=== PATIENT | female | born 1995 | race Caucasian/White ===

== ENCOUNTER 2022-12-06 07:07 | Inpatient (IN) ==
[2022-12-06 08:12] LABS: Hematocrit (blood only) 40.2 % (37.0-47.0); Hemoglobin 13.6 g/dl (12.0-16.0); Mean Corpuscular Hemoglobin 31.6 pg (25.0-34.0); Mean Corpuscular Hgb Conc 33.8 g/dL (32.0-36.0); Mean Corpuscular Volume 93.3 fL (80.0-100.0); Mean Platelet Volume 10.1 fL (9.4-12.4); Platelet Count 238 K/uL (130-400); RDW Standard Deviation 48.2 fL (36.4-46.3); Red Blood Count 4.31 M/uL (4.20-5.40); White Blood Count 9.82 K/ul (4.8-10.8)
[2022-12-06 08:42] LABS: Albumin Globulin Ratio 1.1 (0.9-2); Albumin Level 3.2 gm/dl (3.4-5.0); BUN Creatinine Ratio 31.6 (10-20); Bilirubin,Total 0.2 mg/dl (0.2-1.0); Calcium 9.1 mg/dl (8.6-10.3); Creatinine Clr Calc Pharmacy 159.4 ml/min; Est GFR (African American) 147.2 ml/min; Potassium 3.7 mmol/L (3.5-5.1); Total Protein 6.2 gm/dl (6.0-8.3)
[2022-12-06] MEDS ORDERED: LIDOCAINE 1% LOCAL 20 ML VIAL INFIL PRN (09:25)
[2022-12-06] MEDS ORDERED: OXYTOCIN 30 UNITS/500 ML BAG IV PRN (09:25)
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
[2022-12-06] MEDS ORDERED: DINOPROSTONE 10 MG INSERT PV ONE (09:59)
--- NOTE | 2022-12-06 10:49 | Labor Progress Brief Note ---
Date of Service December 06, 2022 Assessment & Plan Admission and Anticipated Discharge Date Admission Date: December 06, 2022 Physical Exam Genitourinary: Manual OB Exam: + cervical dilation fingertip, + cervical effacement 50% and + station high OB Exam Monitor Tracing: + external FHT monitor used, + external uterine monitor used, + category I and + normal FHT variability Cervidil 10 mg placed vaginally Results & Data Vital Signs (Past 12 Hours) Vital Signs Temp Pulse Resp BP 12/06/22 10:46 102 H 155/88 H 12/06/22 07:14 20 12/06/22 07:14 36.5 C 20 12/06/22 07:47 100 H 130/81 12/06/22 07:32 101 H 135/84 12/06/22 07:17 36.5 C 109 H 20 142/83 H
--- NOTE | 2022-12-06 22:35 | Labor Progress Brief Note ---
Date of Service December 06, 2022 Assessment & Plan Admission and Anticipated Discharge Date Admission Date: December 06, 2022 Physical Exam Genitourinary: Manual OB Exam: + cervical dilation fingertip, + cervical effacement 50% and + station high OB Exam Monitor Tracing: + external FHT monitor used, + external uterine monitor used and + category I Cervidil removed. Will start Cytotec 50 mcg PO every 4 hours. Results & Data Vital Signs (Past 12 Hours) Vital Signs Temp Pulse Resp BP 12/06/22 22:20 36.7 C 101 H 18 126/91 12/06/22 19:12 37.0 C 110 H 18 138/93 12/06/22 18:43 112 H 134/84 12/06/22 16:14 114 H 136/84 12/06/22 16:11 115 H 136/92 12/06/22 15:14 108 H 139/90 12/06/22 15:01 121 H 152/88 H 12/06/22 13:32 106 H 132/72 12/06/22 12:30 36.6 C 106 H 20 132/89 12/06/22 10:46 102 H 155/88 H
[2022-12-07] MEDS: miSOPROStoL 50 MCG TAB PO PRN ×2 (00:03→05:56)
[2022-12-07] MEDS ORDERED: BUTORPHANOL TARTRATE 1 MG/ML VIAL IV PRN (00:13)
[2022-12-07] MEDS: DOCUSATE SODIUM 100 MG CAP PO SCH ×3 (01:05→20:01)
[2022-12-07] MEDS ORDERED: ceFAZolin 2000MG 2,000 MG/15 ML SYR IV SCH (06:00)
[2022-12-07] MEDS ORDERED: OXYTOCIN 30 UNITS/500 ML BAG IV PRN (08:37)
--- NOTE | 2022-12-07 09:03 | Obstetrical Progress Note ---
Date of Service December 07, 2022 Assessment & Plan Admission and Anticipated Discharge Date Admission Date: December 06, 2022 Subjective Patient is seen and examined. She was admitted yesterday by Dr. Gavin for induction of labor at term due to gestational diabetes recently required insulin. Patient has not had time to start insulin since it was prescribed on December 05 and her induction date was moved to yesterday December 06. She has received intravaginal Cervidil yesterday morning and then continued with oral Cytotec overnight. She has been feeling contractions irregularly pain level is 5 out of 10. She denies leakage of fluid or vaginal bleeding. She reports good movements. Last ultrasound was done by [facility] 3 weeks ago and EFW was 6 pounds 14 ounces. I checked her cervix and it is now 3 cm dilated, 60% effaced, -2 with a tight bulging bag. heart rate category 1, Kep'El showing contractions every 4 to 6 minutes Plan to start oxytocin per protocol and AROM when able. All questions were answered. Results & Data Vital Signs (Past 12 Hours) Vital Signs Temp Pulse Resp BP 12/07/22 07:09 36.8 C 100 H 18 144/86 H 12/07/22 05:22 18 12/07/22 05:22 37.1 C 18 12/07/22 05:21 100 H 121/82 12/07/22 01:00 36.9 C 100 H 18 132/86 12/06/22 22:20 36.7 C 101 H 18 126/91
[2022-12-07] MEDS: LACTATED RINGER'S 1,000 ML IV PRN ×3 (09:31→17:30)
[2022-12-07] MEDS ORDERED: SODIUM CHLORIDE 0.9% PF INJ 10 ML VIAL ONE (09:53)
[2022-12-07] MEDS ORDERED: BUPIVACAINE 0.25% PF 30 ML VIAL ONE (09:53)
[2022-12-07] MEDS ORDERED: ePHEDrine sulfate 50 MG/ML AMP ONE (09:53)
[2022-12-07] MEDS ORDERED: LIDOCAINE 2%/EPINEPHRINE 1:200,000 20 ML PF ONE ×2 (09:53→21:27)
[2022-12-07] MEDS ORDERED: fentaNYL citrate PF 100 MCG/2 ML VIAL ONE (09:53)
[2022-12-07] MEDS ORDERED: fentaNYL 2MCG/ML ROPIVACAINE 1.25MG/ML 100 ML BAG EPI ONE (09:54)
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
[2022-12-07] MEDS ORDERED: NALBUPHINE HCL INJ 10 MG/ML AMP IV PRN ×2 (10:30→21:41)
[2022-12-07] MEDS ORDERED: fentaNYL 2MCG/ML ROPIVACAINE 1.25MG/ML 100 ML BAG EPI PRN (10:30)
[2022-12-07] MEDS ORDERED: BUPIVACAINE 0.25% PF 30 ML VIAL EPI STA (10:30)
[2022-12-07] MEDS ORDERED: ROPIVACAINE 0.5% PF 5 MG/ML 20 ML VIAL EPI PRN (10:30)
[2022-12-07] MEDS ORDERED: SODIUM CHLORIDE 0.9% PF INJ 10 ML VIAL EPI PRN (10:30)
[2022-12-07] MEDS ORDERED: NALOXONE HCL 1 MG in SODIUM CHLORIDE 0.9% 1,000 ML IV PRN ×2 (10:30→21:41)
[2022-12-07] MEDS ORDERED: ONDANSETRON INJ 2 MG/ML 2 ML VIAL IV PRN ×2 (10:30→21:41)
[2022-12-07] MEDS ORDERED: NALOXONE HCL 0.4 MG/1 ML VIAL/CARP IV PRN ×2 (10:30→21:41)
[2022-12-07] MEDS ORDERED: LIDOCAINE 2%/EPINEPHRINE 1:200,000 20 ML PF EPI STA (10:30)
[2022-12-07] MEDS ORDERED: SODIUM CHLORIDE 0.9% PF INJ 10 ML VIAL EPI STA (10:30)
[2022-12-07] MEDS ORDERED: fentaNYL citrate PF 100 MCG/2 ML VIAL EPI STA (10:30)
[2022-12-07] MEDS ORDERED: LIDOCAINE 2% MPF LOCAL 5 ML VIAL EPI PRN (10:30)
[2022-12-07] MEDS ORDERED: BUPIVACAINE 0.25% PF 30 ML VIAL EPI PRN (10:30)
[2022-12-07] MEDS ORDERED: ePHEDrine sulfate 50 MG/ML AMP IV PRN ×2 (10:30→21:41)
[2022-12-07] MEDS ORDERED: fentaNYL citrate PF 100 MCG/2 ML VIAL EPI PRN (10:30)
[2022-12-07] MEDS ORDERED: diphenhydrAMINE 50 MG/ML VIAL IV PRN ×2 (10:30→21:41)
--- NOTE | 2022-12-07 14:10 | Obstetrical Progress Note ---
Date of Service December 07, 2022 Assessment & Plan Admission and Anticipated Discharge Date Admission Date: December 06, 2022 Subjective Patient is comfortable, received epidural for pain VE; 4/ 50%/ -2, AROM'ed, light meconium FHR Categ I Oxytocin is at 10 miu/min Continue to monitor closely FS q 1 hour Results & Data Vital Signs (Past 12 Hours) Vital Signs Temp Pulse Resp BP Pulse Ox 12/07/22 14:03 102 H 98 12/07/22 13:58 97 H 97 12/07/22 13:55 106 H 142/77 H 12/07/22 13:53 103 H 98 12/07/22 13:48 101 H 98 12/07/22 13:43 101 H 99 12/07/22 13:38 93 H 98 12/07/22 13:39 91 H 139/85 12/07/22 13:33 107 H 100 12/07/22 13:28 108 H 99 12/07/22 13:23 94 H 123/78 98 12/07/22 13:18 98 H 98 12/07/22 13:13 101 H 98 12/07/22 13:08 97 H 98 12/07/22 13:09 96 H 130/75 12/07/22 13:03 96 H 98 12/07/22 12:58 100 H 98 12/07/22 12:53 95 H 129/73 99 12/07/22 12:48 94 H 98 12/07/22 12:43 96 H 98 12/07/22 12:30 18 12/07/22 12:30 36.9 C 18 12/07/22 12:38 100 H 98 12/07/22 12:39 93 H 126/72 12/07/22 12:33 91 H 97 12/07/22 12:28 95 H 98 12/07/22 12:23 93 H 99 12/07/22 12:24 91 H 132/90 12/07/22 12:18 98 H 99 12/07/22 12:13 98 H 98 12/07/22 12:08 104 H 122/72 98 12/07/22 12:03 98 H 99 12/07/22 11:58 103 H 98 12/07/22 11:54 95 H 124/75 12/07/22 11:53 94 H 98 12/07/22 11:48 101 H 100 12/07/22 11:43 97 H 99 12/07/22 11:38 92 H 116/70 98 12/07/22 11:33 98 H 98 12/07/22 11:28 96 H 98 12/07/22 11:00 16 12/07/22 11:00 16 12/07/22 11:23 99 H 118/72 98 12/07/22 11:18 103 H 97 12/07/22 11:13 98 H 98 12/07/22 11:10 97 H 128/73 12/07/22 11:08 95 H 97 12/07/22 11:03 101 H 97 12/07/22 10:58 99 H 97 12/07/22 10:53 99 H 98 12/07/22 10:54 98 H 130/75 12/07/22 10:48 88 99 12/07/22 10:43 97 H 98 12/07/22 10:38 98 H 123/64 98 12/07/22 10:36 94 H 123/67 12/07/22 10:34 104 H 116/63 12/07/22 10:33 104 H 97 12/07/22 10:32 108 H 120/63 12/07/22 10:30 36.8 C 109 H 20 122/64 12/07/22 10:28 106 H 97 12/07/22 10:27 105 H 149/83 H 12/07/22 10:25 96 H 136/98 12/07/22 10:23 97 H 98 12/07/22 10:21 111 H 132/97 12/07/22 10:18 114 H 100 12/07/22 10:13 115 H 100 12/07/22 07:09 36.8 C 100 H 18 144/86 H 12/07/22 05:22 18 12/07/22 05:22 37.1 C 18 12/07/22 05:21 100 H 121/82
[2022-12-07] MEDS ORDERED: Nursing to Pharmacy Communication SCH (15:45)
--- NOTE | 2022-12-07 16:30 | Obstetrical Progress Note ---
Date of Service December 07, 2022 Assessment & Plan Admission and Anticipated Discharge Date Admission Date: December 06, 2022 Subjective Late entry FHR had prolonged deceleration which resolved with position change and d/c Oxytocin Having variable decels with some contractions, good variability and accels present in between VE; ant lip, 90%/ 0 Continue to monitor closely Results & Data Vital Signs (Past 12 Hours) Vital Signs Temp Pulse Resp BP Pulse Ox 12/07/22 16:28 105 H 99 12/07/22 16:23 99 12/07/22 16:23 109 H 12/07/22 16:23 108 H 138/77 12/07/22 16:01 18 12/07/22 16:01 18 12/07/22 16:18 111 H 98 12/07/22 16:13 118 H 98 12/07/22 16:08 94 H 98 12/07/22 16:09 91 H 134/79 12/07/22 16:03 104 H 99 12/07/22 15:58 105 H 96 12/07/22 15:55 105 H 138/73 12/07/22 15:53 107 H 98 12/07/22 15:48 99 H 99 12/07/22 15:43 102 H 96 12/07/22 15:38 100 H 145/90 H 98 12/07/22 15:33 100 H 97 12/07/22 15:30 97 H 140/66 12/07/22 15:28 104 H 100 12/07/22 15:25 98 H 158/100 H 12/07/22 15:23 97 H 100 12/07/22 15:18 96 H 100 12/07/22 15:13 102 H 100 12/07/22 15:10 89 141/88 H 12/07/22 15:08 100 H 100 12/07/22 15:03 99 H 100 12/07/22 14:59 20 12/07/22 14:59 37.0 C 20 12/07/22 14:58 102 H 100 12/07/22 14:53 105 H 100 12/07/22 14:54 108 H 148/65 H 12/07/22 14:48 107 H 100 12/07/22 14:43 103 H 100 12/07/22 14:38 117 H 100 12/07/22 14:39 116 H 156/96 H 12/07/22 14:33 108 H 100 12/07/22 14:28 98 H 98 12/07/22 14:24 93 H 140/78 12/07/22 14:23 102 H 98 12/07/22 14:18 95 H 98 12/07/22 14:13 90 98 12/07/22 14:11 95 H 121/67 12/07/22 14:10 101 H 143/93 H 12/07/22 14:08 98 H 98 12/07/22 14:03 102 H 98 12/07/22 13:58 97 H 97 12/07/22 13:55 106 H 142/77 H 12/07/22 13:53 103 H 98 12/07/22 13:48 101 H 98 12/07/22 13:43 101 H 99 12/07/22 13:38 93 H 98 12/07/22 13:39 91 H 139/85 12/07/22 13:33 107 H 100 12/07/22 13:28 108 H 99 12/07/22 13:23 94 H 123/78 98 12/07/22 13:18 98 H 98 12/07/22 13:13 101 H 98 12/07/22 13:08 97 H 98 12/07/22 13:09 96 H 130/75 12/07/22 13:03 96 H 98 12/07/22 12:58 100 H 98 12/07/22 12:53 95 H 129/73 99 12/07/22 12:48 94 H 98 12/07/22 12:43 96 H 98 12/07/22 12:30 18 12/07/22 12:30 36.9 C 18 12/07/22 12:38 100 H 98 12/07/22 12:39 93 H 126/72 12/07/22 12:33 91 H 97 12/07/22 12:28 95 H 98 12/07/22 12:23 93 H 99 12/07/22 12:24 91 H 132/90 12/07/22 12:18 98 H 99 12/07/22 12:13 98 H 98 12/07/22 12:08 104 H 122/72 98 12/07/22 12:03 98 H 99 12/07/22 11:58 103 H 98 12/07/22 11:54 95 H 124/75 12/07/22 11:53 94 H 98 12/07/22 11:48 101 H 100 12/07/22 11:43 97 H 99 12/07/22 11:38 92 H 116/70 98 12/07/22 11:33 98 H 98 12/07/22 11:28 96 H 98 12/07/22 11:00 16 12/07/22 11:00 16 12/07/22 11:23 99 H 118/72 98 12/07/22 11:18 103 H 97 12/07/22 11:13 98 H 98 12/07/22 11:10 97 H 128/73 12/07/22 11:08 95 H 97 12/07/22 11:03 101 H 97 12/07/22 10:58 99 H 97 12/07/22 10:53 99 H 98 12/07/22 10:54 98 H 130/75 12/07/22 10:48 88 99 12/07/22 10:43 97 H 98 12/07/22 10:38 98 H 123/64 98 12/07/22 10:36 94 H 123/67 12/07/22 10:34 104 H 116/63 12/07/22 10:33 104 H 97 12/07/22 10:32 108 H 120/63 12/07/22 10:30 36.8 C 109 H 20 122/64 12/07/22 10:28 106 H 97 12/07/22 10:27 105 H 149/83 H 12/07/22 10:25 96 H 136/98 12/07/22 10:23 97 H 98 12/07/22 10:21 111 H 132/97 12/07/22 10:18 114 H 100 12/07/22 10:13 115 H 100 12/07/22 07:09 36.8 C 100 H 18 144/86 H 12/07/22 05:22 18 12/07/22 05:22 37.1 C 18 12/07/22 05:21 100 H 121/82
--- NOTE | 2022-12-07 17:22 | Obstetrical Progress Note ---
Date of Service December 07, 2022 Assessment & Plan Admission and Anticipated Discharge Date Admission Date: December 06, 2022 Subjective heart rate had another deceleration with recovery on her left lateral side, Now at 130s to 150s, good variability and accelerations, Head is at +2 station, trial of push was effective with descent of the head, heart rate had acceleration after right checked her, Continue to monitor closely and keep pushing. Results & Data Vital Signs (Past 12 Hours) Vital Signs Temp Pulse Resp BP Pulse Ox 12/07/22 17:19 131 H 100 12/07/22 17:13 123 H 99 12/07/22 17:08 113 H 140/81 99 12/07/22 17:03 112 H 98 12/07/22 16:58 99 H 97 12/07/22 16:53 99 12/07/22 16:53 128 H 12/07/22 16:53 125 H 143/89 H 12/07/22 16:48 130 H 99 12/07/22 16:43 126 H 99 12/07/22 16:38 113 H 143/93 H 100 12/07/22 16:33 115 H 99 12/07/22 16:28 105 H 99 12/07/22 16:23 99 12/07/22 16:23 109 H 12/07/22 16:23 108 H 138/77 12/07/22 16:01 18 12/07/22 16:01 18 12/07/22 16:18 111 H 98 12/07/22 16:13 118 H 98 12/07/22 16:08 94 H 98 12/07/22 16:09 91 H 134/79 12/07/22 16:03 104 H 99 12/07/22 15:58 105 H 96 12/07/22 15:55 105 H 138/73 12/07/22 15:53 107 H 98 12/07/22 15:48 99 H 99 12/07/22 15:43 102 H 96 12/07/22 15:38 100 H 145/90 H 98 12/07/22 15:33 100 H 97 12/07/22 15:30 97 H 140/66 12/07/22 15:28 104 H 100 12/07/22 15:25 98 H 158/100 H 12/07/22 15:23 97 H 100 12/07/22 15:18 96 H 100 12/07/22 15:13 102 H 100 12/07/22 15:10 89 141/88 H 12/07/22 15:08 100 H 100 12/07/22 15:03 99 H 100 12/07/22 14:59 20 12/07/22 14:59 37.0 C 20 12/07/22 14:58 102 H 100 12/07/22 14:53 105 H 100 12/07/22 14:54 108 H 148/65 H 12/07/22 14:48 107 H 100 12/07/22 14:43 103 H 100 12/07/22 14:38 117 H 100 12/07/22 14:39 116 H 156/96 H 12/07/22 14:33 108 H 100 12/07/22 14:28 98 H 98 12/07/22 14:24 93 H 140/78 12/07/22 14:23 102 H 98 12/07/22 14:18 95 H 98 12/07/22 14:13 90 98 12/07/22 14:11 95 H 121/67 12/07/22 14:10 101 H 143/93 H 12/07/22 14:08 98 H 98 12/07/22 14:03 102 H 98 12/07/22 13:58 97 H 97 12/07/22 13:55 106 H 142/77 H 12/07/22 13:53 103 H 98 12/07/22 13:48 101 H 98 12/07/22 13:43 101 H 99 12/07/22 13:38 93 H 98 12/07/22 13:39 91 H 139/85 12/07/22 13:33 107 H 100 12/07/22 13:28 108 H 99 12/07/22 13:23 94 H 123/78 98 12/07/22 13:18 98 H 98 12/07/22 13:13 101 H 98 12/07/22 13:08 97 H 98 12/07/22 13:09 96 H 130/75 12/07/22 13:03 96 H 98 12/07/22 12:58 100 H 98 12/07/22 12:53 95 H 129/73 99 12/07/22 12:48 94 H 98 12/07/22 12:43 96 H 98 12/07/22 12:30 18 10/19/23 12:30 36.9 C 18 12/07/22 12:38 100 H 98 12/07/22 12:39 93 H 126/72 12/07/22 12:33 91 H 97 12/07/22 12:28 95 H 98 12/07/22 12:23 93 H 99 12/07/22 12:24 91 H 132/90 12/07/22 12:18 98 H 99 12/07/22 12:13 98 H 98 12/07/22 12:08 104 H 122/72 98 12/07/22 12:03 98 H 99 12/07/22 11:58 103 H 98 12/07/22 11:54 95 H 124/75 12/07/22 11:53 94 H 98 12/07/22 11:48 101 H 100 12/07/22 11:43 97 H 99 12/07/22 11:38 92 H 116/70 98 12/07/22 11:33 98 H 98 12/07/22 11:28 96 H 98 12/07/22 11:00 16 12/07/22 11:00 16 12/07/22 11:23 99 H 118/72 98 12/07/22 11:18 103 H 97 12/07/22 11:13 98 H 98 12/07/22 11:10 97 H 128/73 12/07/22 11:08 95 H 97 12/07/22 11:03 101 H 97 12/07/22 10:58 99 H 97 12/07/22 10:53 99 H 98 12/07/22 10:54 98 H 130/75 12/07/22 10:48 88 99 12/07/22 10:43 97 H 98 12/07/22 10:38 98 H 123/64 98 12/07/22 10:36 94 H 123/67 12/07/22 10:34 104 H 116/63 12/07/22 10:33 104 H 97 12/07/22 10:32 108 H 120/63 12/07/22 10:30 36.8 C 109 H 20 122/64 12/07/22 10:28 106 H 97 12/07/22 10:27 105 H 149/83 H 12/07/22 10:25 96 H 136/98 12/07/22 10:23 97 H 98 12/07/22 10:21 111 H 132/97 12/07/22 10:18 114 H 100 12/07/22 10:13 115 H 100 12/07/22 07:09 36.8 C 100 H 18 144/86 H 12/07/22 05:22 18 12/07/22 05:22 37.1 C 18
--- NOTE | 2022-12-07 18:03 | Obstetrical Progress Note ---
Date of Service December 07, 2022 Assessment & Plan Admission and Anticipated Discharge Date Admission Date: December 06, 2022 Subjective Patient has been pushing with good efforts FHR category I Head is slightly lower than before +2 to 3 with pushes Continue to monitor closely Results & Data Vital Signs (Past 12 Hours) Vital Signs Temp Pulse Resp BP Pulse Ox 12/07/22 17:59 127 H 99 12/07/22 17:58 146 H 83 L 12/07/22 17:54 123 H 99 12/07/22 17:52 121 H 90 12/07/22 17:49 136 H 99 12/07/22 17:46 128 H 88 L 12/07/22 17:44 118 H 99 12/07/22 17:39 126 H 100 12/07/22 17:38 129 H 128/72 12/07/22 17:35 20 12/07/22 17:35 36.8 C 20 12/07/22 17:34 127 H 99 12/07/22 17:29 147 H 97 12/07/22 17:24 100 12/07/22 17:24 128 H 12/07/22 17:24 121 H 148/84 H 12/07/22 17:19 131 H 100 12/07/22 17:13 123 H 99 12/07/22 17:08 113 H 140/81 99 12/07/22 17:03 112 H 98 12/07/22 16:58 99 H 97 12/07/22 16:53 99 12/07/22 16:53 128 H 12/07/22 16:53 125 H 143/89 H 12/07/22 16:48 130 H 99 12/07/22 16:43 126 H 99 12/07/22 16:38 113 H 143/93 H 100 12/07/22 16:33 115 H 99 12/07/22 16:28 105 H 99 12/07/22 16:23 99 12/07/22 16:23 109 H 12/07/22 16:23 108 H 138/77 12/07/22 16:01 18 12/07/22 16:01 18 12/07/22 16:18 111 H 98 12/07/22 16:13 118 H 98 12/07/22 16:08 94 H 98 12/07/22 16:09 91 H 134/79 12/07/22 16:03 104 H 99 12/07/22 15:58 105 H 96 12/07/22 15:55 105 H 138/73 12/07/22 15:53 107 H 98 12/07/22 15:48 99 H 99 12/07/22 15:43 102 H 96 12/07/22 15:38 100 H 145/90 H 98 12/07/22 15:33 100 H 97 12/07/22 15:30 97 H 140/66 12/07/22 15:28 104 H 100 12/07/22 15:25 98 H 158/100 H 12/07/22 15:23 97 H 100 12/07/22 15:18 96 H 100 12/07/22 15:13 102 H 100 12/07/22 15:10 89 141/88 H 12/07/22 15:08 100 H 100 12/07/22 15:03 99 H 100 12/07/22 14:59 20 12/07/22 14:59 37.0 C 20 12/07/22 14:58 102 H 100 12/07/22 14:53 105 H 100 12/07/22 14:54 108 H 148/65 H 12/07/22 14:48 107 H 100 12/07/22 14:43 103 H 100 12/07/22 14:38 117 H 100 12/07/22 14:39 116 H 156/96 H 12/07/22 14:33 108 H 100 12/07/22 14:28 98 H 98 12/07/22 14:24 93 H 140/78 12/07/22 14:23 102 H 98 12/07/22 14:18 95 H 98 12/07/22 14:13 90 98 12/07/22 14:11 95 H 121/67 12/07/22 14:10 101 H 143/93 H 12/07/22 14:08 98 H 98 12/07/22 14:03 102 H 98 12/07/22 13:58 97 H 97 12/07/22 13:55 106 H 142/77 H 12/07/22 13:53 103 H 98 12/07/22 13:48 101 H 98 12/07/22 13:43 101 H 99 12/07/22 13:38 93 H 98 12/07/22 13:39 91 H 139/85 12/07/22 13:33 107 H 100 12/07/22 13:28 108 H 99 12/07/22 13:23 94 H 123/78 98 12/07/22 13:18 98 H 98 12/07/22 13:13 101 H 98 12/07/22 13:08 97 H 98 12/07/22 13:09 96 H 130/75 12/07/22 13:03 96 H 98 12/07/22 12:58 100 H 98 12/07/22 12:53 95 H 129/73 99 12/07/22 12:48 94 H 98 12/07/22 12:43 96 H 98 12/07/22 12:30 18 12/07/22 12:30 36.9 C 18 12/07/22 12:38 100 H 98 12/07/22 12:39 93 H 126/72 12/07/22 12:33 91 H 97 12/07/22 12:28 95 H 98 12/07/22 12:23 93 H 99 12/07/22 12:24 91 H 132/90 12/07/22 12:18 98 H 99 12/07/22 12:13 98 H 98 12/07/22 12:08 104 H 122/72 98 12/07/22 12:03 98 H 99 12/07/22 11:58 103 H 98 12/07/22 11:54 95 H 124/75 12/07/22 11:53 94 H 98 12/07/22 11:48 101 H 100 12/07/22 11:43 97 H 99 12/07/22 11:38 92 H 116/70 98 12/07/22 11:33 98 H 98 12/07/22 11:28 96 H 98 12/07/22 11:00 16 12/07/22 11:00 16 12/07/22 11:23 99 H 118/72 98 12/07/22 11:18 103 H 97 12/07/22 11:13 98 H 98 12/07/22 11:10 97 H 128/73 12/07/22 11:08 95 H 97 12/07/22 11:03 101 H 97 12/07/22 10:58 99 H 97 12/07/22 10:53 99 H 98 12/07/22 10:54 98 H 130/75 12/07/22 10:48 88 99 12/07/22 10:43 97 H 98 12/07/22 10:38 98 H 123/64 98 12/07/22 10:36 94 H 123/67 12/07/22 10:34 104 H 116/63 12/07/22 10:33 104 H 97 12/07/22 10:32 108 H 120/63 12/07/22 10:30 36.8 C 109 H 20 122/64 12/07/22 10:28 106 H 97 12/07/22 10:27 105 H 149/83 H 12/07/22 10:25 96 H 136/98 12/07/22 10:23 97 H 98 12/07/22 10:21 111 H 132/97 12/07/22 10:18 114 H 100 12/07/22 10:13 115 H 100 12/07/22 07:09 36.8 C 100 H 18 144/86 H
--- NOTE | 2022-12-07 19:49 | Obstetrical Progress Note ---
Date of Service December 07, 2022 Assessment & Plan Admission and Anticipated Discharge Date Admission Date: December 06, 2022 Subjective Patient pushed for an hour and then wanted to rest. She rested for about an hour and started pushing again. VE; head feels lower, +3, small caput visible with pushing, there is still a transverse band in upper vagina, head is strecthing that with each pushes, it is stretchable and wide enough to allow head to pass through FHR had variable decels while resting, has more variability and accels during pushing Continue to monitor closely Results & Data Vital Signs (Past 12 Hours) Vital Signs Temp Pulse Resp BP Pulse Ox 12/07/22 19:44 124 H 99 12/07/22 19:41 139 H 92 12/07/22 19:39 116 H 98 12/07/22 19:38 114 H 130/86 12/07/22 19:34 118 H 100 12/07/22 19:32 121 H 90 12/07/22 19:29 118 H 97 12/07/22 19:25 120 H 89 L 12/07/22 19:24 114 H 100 12/07/22 19:23 107 H 142/90 H 12/07/22 19:19 110 H 100 12/07/22 19:14 103 H 100 12/07/22 19:09 110 H 139/99 100 12/07/22 19:04 107 H 100 12/07/22 19:01 18 12/07/22 19:01 37.2 C 18 12/07/22 18:59 111 H 100 12/07/22 18:54 116 H 148/86 H 100 12/07/22 18:49 116 H 100 12/07/22 18:44 118 H 100 12/07/22 18:39 107 H 99 12/07/22 18:38 105 H 121/70 12/07/22 18:34 103 H 99 12/07/22 18:29 103 H 97 12/07/22 18:24 105 H 98 12/07/22 18:23 107 H 18 122/73 12/07/22 18:19 109 H 98 12/07/22 18:14 126 H 100 12/07/22 18:09 122 H 77 L 12/07/22 18:08 115 H 136/85 12/07/22 18:04 136 H 99 12/07/22 17:59 127 H 99 12/07/22 17:58 146 H 83 L 12/07/22 17:54 123 H 99 12/07/22 17:52 121 H 90 12/07/22 17:49 136 H 99 12/07/22 17:46 128 H 88 L 12/07/22 17:44 118 H 99 12/07/22 17:39 126 H 100 12/07/22 17:38 129 H 128/72 12/07/22 17:35 20 12/07/22 17:35 36.8 C 20 12/07/22 17:34 127 H 99 12/07/22 17:29 147 H 97 12/07/22 17:24 100 12/07/22 17:24 128 H 12/07/22 17:24 121 H 148/84 H 12/07/22 17:19 131 H 100 12/07/22 17:13 123 H 99 12/07/22 17:08 113 H 140/81 99 12/07/22 17:03 112 H 98 12/07/22 16:58 99 H 97 12/07/22 16:53 99 12/07/22 16:53 128 H 12/07/22 16:53 125 H 143/89 H 12/07/22 16:48 130 H 99 12/07/22 16:43 126 H 99 12/07/22 16:38 113 H 143/93 H 100 12/07/22 16:33 115 H 99 12/07/22 16:28 105 H 99 12/07/22 16:23 99 12/07/22 16:23 109 H 12/07/22 16:23 108 H 138/77 12/07/22 16:01 18 12/07/22 16:01 18 12/07/22 16:18 111 H 98 12/07/22 16:13 118 H 98 12/07/22 16:08 94 H 98 12/07/22 16:09 91 H 134/79 12/07/22 16:03 104 H 99 12/07/22 15:58 105 H 96 12/07/22 15:55 105 H 138/73 12/07/22 15:53 107 H 98 12/07/22 15:48 99 H 99 12/07/22 15:43 102 H 96 12/07/22 15:38 100 H 145/90 H 98 12/07/22 15:33 100 H 97 12/07/22 15:30 97 H 140/66 12/07/22 15:28 104 H 100 12/07/22 15:25 98 H 158/100 H 12/07/22 15:23 97 H 100 12/07/22 15:18 96 H 100 12/07/22 15:13 102 H 100 12/07/22 15:10 89 141/88 H 12/07/22 15:08 100 H 100 12/07/22 15:03 99 H 100 12/07/22 14:59 20 12/07/22 14:59 37.0 C 20 12/07/22 14:58 102 H 100 12/07/22 14:53 105 H 100 12/07/22 14:54 108 H 148/65 H 12/07/22 14:48 107 H 100 12/07/22 14:43 103 H 100 12/07/22 14:38 117 H 100 12/07/22 14:39 116 H 156/96 H 12/07/22 14:33 108 H 100 12/07/22 14:28 98 H 98 12/07/22 14:24 93 H 140/78 12/07/22 14:23 102 H 98 12/07/22 14:18 95 H 98 12/07/22 14:13 90 98 12/07/22 14:11 95 H 121/67 12/07/22 14:10 101 H 143/93 H 12/07/22 14:08 98 H 98 12/07/22 14:03 102 H 98 12/07/22 13:58 97 H 97 12/07/22 13:55 106 H 142/77 H 12/07/22 13:53 103 H 98 12/07/22 13:48 101 H 98 12/07/22 13:43 101 H 99 12/07/22 13:38 93 H 98 12/07/22 13:39 91 H 139/85 12/07/22 13:33 107 H 100 12/07/22 13:28 108 H 99 12/07/22 13:23 94 H 123/78 98 12/07/22 13:18 98 H 98 12/07/22 13:13 101 H 98 12/07/22 13:08 97 H 98 12/07/22 13:09 96 H 130/75 12/07/22 13:03 96 H 98 12/07/22 12:58 100 H 98 12/07/22 12:53 95 H 129/73 99 12/07/22 12:48 94 H 98 12/07/22 12:43 96 H 98 12/07/22 12:30 18 12/07/22 12:30 36.9 C 18 12/07/22 12:38 100 H 98 12/07/22 12:39 93 H 126/72 12/07/22 12:33 91 H 97 12/07/22 12:28 95 H 98 12/07/22 12:23 93 H 99 12/07/22 12:24 91 H 132/90 12/07/22 12:18 98 H 99 12/07/22 12:13 98 H 98 12/07/22 12:08 104 H 122/72 98 12/07/22 12:03 98 H 99 12/07/22 11:58 103 H 98 12/07/22 11:54 95 H 124/75 12/07/22 11:53 94 H 98 12/07/22 11:48 101 H 100 12/07/22 11:43 97 H 99 12/07/22 11:38 92 H 116/70 98 12/07/22 11:33 98 H 98 12/07/22 11:28 96 H 98 12/07/22 11:00 16 12/07/22 11:00 16 12/07/22 11:23 99 H 118/72 98 12/07/22 11:18 103 H 97 12/07/22 11:13 98 H 98 12/07/22 11:10 97 H 128/73 12/07/22 11:08 95 H 97 12/07/22 11:03 101 H 97 12/07/22 10:58 99 H 97 12/07/22 10:53 99 H 98 12/07/22 10:54 98 H 130/75 12/07/22 10:48 88 99 12/07/22 10:43 97 H 98 12/07/22 10:38 98 H 123/64 98 12/07/22 10:36 94 H 123/67 12/07/22 10:34 104 H 116/63 12/07/22 10:33 104 H 97 12/07/22 10:32 108 H 120/63 12/07/22 10:30 36.8 C 109 H 20 122/64 12/07/22 10:28 106 H 97 12/07/22 10:27 105 H 149/83 H 12/07/22 10:25 96 H 136/98 12/07/22 10:23 97 H 98 12/07/22 10:21 111 H 132/97 12/07/22 10:18 114 H 100 12/07/22 10:13 115 H 100
--- NOTE | 2022-12-07 20:57 | Obstetrical Progress Note ---
Date of Service December 07, 2022 Assessment & Plan Admission and Anticipated Discharge Date Admission Date: December 06, 2022 Subjective Patient pushed for another hour, making total of over 2 hours, head is still behind the pubic bone, about the same station as before. heart rate is having recurrent variable decelerations, category 2, I recommended delivery sooner than later with primary . Patient agreed with it. Patient understands C section is a major surgery, with risks including but not limited to bleeding , infection, injury to surrounding organs like bowels, bladder, ureters, adhesions, scarring, wound infection, blood cloths in legs/ lungs, longer recovery. All questions were answered. She signed an informed consent. Results & Data Vital Signs (Past 12 Hours) Vital Signs Temp Pulse Resp BP Pulse Ox 12/07/22 20:54 159 H 154/71 H 100 12/07/22 20:49 127 H 100 12/07/22 20:46 36.9 C 12/07/22 20:44 127 H 97 12/07/22 20:39 132 H 90 12/07/22 20:38 123 H 20 139/73 12/07/22 20:34 155 H 94 12/07/22 20:29 133 H 94 12/07/22 20:24 134 H 98 12/07/22 20:23 139 H 131/69 12/07/22 20:19 138 H 98 12/07/22 20:14 133 H 99 12/07/22 20:11 120 H 137/78 12/07/22 20:09 136 H 100 12/07/22 20:04 122 H 98 12/07/22 19:59 121 H 97 12/07/22 19:54 133 H 86 L 12/07/22 19:53 122 H 124/81 12/07/22 19:49 123 H 98 12/07/22 19:44 124 H 99 12/07/22 19:41 139 H 92 12/07/22 19:39 116 H 98 12/07/22 19:38 114 H 130/86 12/07/22 19:34 118 H 100 12/07/22 19:32 121 H 90 12/07/22 19:29 118 H 97 12/07/22 19:25 120 H 89 L 12/07/22 19:24 114 H 100 12/07/22 19:23 107 H 142/90 H 10/19/23 19:19 110 H 100 12/07/22 19:14 103 H 100 12/07/22 19:09 110 H 139/99 100 12/07/22 19:04 107 H 100 12/07/22 19:01 18 12/07/22 19:01 37.2 C 18 12/07/22 18:59 111 H 100 12/07/22 18:54 116 H 148/86 H 100 12/07/22 18:49 116 H 100 12/07/22 18:44 118 H 100 12/07/22 18:39 107 H 99 12/07/22 18:38 105 H 121/70 12/07/22 18:34 103 H 99 12/07/22 18:29 103 H 97 12/07/22 18:24 105 H 98 12/07/22 18:23 107 H 18 122/73 12/07/22 18:19 109 H 98 12/07/22 18:14 126 H 100 12/07/22 18:09 122 H 77 L 12/07/22 18:08 115 H 136/85 12/07/22 18:04 136 H 99 12/07/22 17:59 127 H 99 12/07/22 17:58 146 H 83 L 12/07/22 17:54 123 H 99 12/07/22 17:52 121 H 90 12/07/22 17:49 136 H 99 12/07/22 17:46 128 H 88 L 12/07/22 17:44 118 H 99 12/07/22 17:39 126 H 100 12/07/22 17:38 129 H 128/72 12/07/22 17:35 20 12/07/22 17:35 36.8 C 20 12/07/22 17:34 127 H 99 12/07/22 17:29 147 H 97 12/07/22 17:24 100 12/07/22 17:24 128 H 12/07/22 17:24 121 H 148/84 H 12/07/22 17:19 131 H 100 12/07/22 17:13 123 H 99 12/07/22 17:08 113 H 140/81 99 12/07/22 17:03 112 H 98 12/07/22 16:58 99 H 97 12/07/22 16:53 99 12/07/22 16:53 128 H 12/07/22 16:53 125 H 143/89 H 12/07/22 16:48 130 H 99 12/07/22 16:43 126 H 99 12/07/22 16:38 113 H 143/93 H 100 12/07/22 16:33 115 H 99 12/07/22 16:28 105 H 99 12/07/22 16:23 99 12/07/22 16:23 109 H 12/07/22 16:23 108 H 138/77 12/07/22 16:01 18 12/07/22 16:01 18 12/07/22 16:18 111 H 98 12/07/22 16:13 118 H 98 12/07/22 16:08 94 H 98 12/07/22 16:09 91 H 134/79 12/07/22 16:03 104 H 99 12/07/22 15:58 105 H 96 12/07/22 15:55 105 H 138/73 12/07/22 15:53 107 H 98 12/07/22 15:48 99 H 99 12/07/22 15:43 102 H 96 12/07/22 15:38 100 H 145/90 H 98 12/07/22 15:33 100 H 97 12/07/22 15:30 97 H 140/66 12/07/22 15:28 104 H 100 12/07/22 15:25 98 H 158/100 H 12/07/22 15:23 97 H 100 12/07/22 15:18 96 H 100 12/07/22 15:13 102 H 100 12/07/22 15:10 89 141/88 H 12/07/22 15:08 100 H 100 12/07/22 15:03 99 H 100 12/07/22 14:59 20 12/07/22 14:59 37.0 C 20 12/07/22 14:58 102 H 100 12/07/22 14:53 105 H 100 12/07/22 14:54 108 H 148/65 H 12/07/22 14:48 107 H 100 12/07/22 14:43 103 H 100 12/07/22 14:38 117 H 100 12/07/22 14:39 116 H 156/96 H 12/07/22 14:33 108 H 100 12/07/22 14:28 98 H 98 12/07/22 14:24 93 H 140/78 12/07/22 14:23 102 H 98 12/07/22 14:18 95 H 98 12/07/22 14:13 90 98 12/07/22 14:11 95 H 121/67 12/07/22 14:10 101 H 143/93 H 12/07/22 14:08 98 H 98 12/07/22 14:03 102 H 98 12/07/22 13:58 97 H 97 12/07/22 13:55 106 H 142/77 H 12/07/22 13:53 103 H 98 12/07/22 13:48 101 H 98 12/07/22 13:43 101 H 99 12/07/22 13:38 93 H 98 12/07/22 13:39 91 H 139/85 12/07/22 13:33 107 H 100 12/07/22 13:28 108 H 99 12/07/22 13:23 94 H 123/78 98 12/07/22 13:18 98 H 98 12/07/22 13:13 101 H 98 12/07/22 13:08 97 H 98 12/07/22 13:09 96 H 130/75 12/07/22 13:03 96 H 98 12/07/22 12:58 100 H 98 12/07/22 12:53 95 H 129/73 99 12/07/22 12:48 94 H 98 12/07/22 12:43 96 H 98 12/07/22 12:30 18 12/07/22 12:30 36.9 C 18 12/07/22 12:38 100 H 98 12/07/22 12:39 93 H 126/72 12/07/22 12:33 91 H 97 12/07/22 12:28 95 H 98 12/07/22 12:23 93 H 99 12/07/22 12:24 91 H 132/90 12/07/22 12:18 98 H 99 12/07/22 12:13 98 H 98 12/07/22 12:08 104 H 122/72 98 12/07/22 12:03 98 H 99 12/07/22 11:58 103 H 98 12/07/22 11:54 95 H 124/75 12/07/22 11:53 94 H 98 12/07/22 11:48 101 H 100 10/19/23 11:43 97 H 99 12/07/22 11:38 92 H 116/70 98 12/07/22 11:33 98 H 98 12/07/22 11:28 96 H 98 12/07/22 11:00 16 12/07/22 11:00 16 12/07/22 11:23 99 H 118/72 98 12/07/22 11:18 103 H 97 12/07/22 11:13 98 H 98 12/07/22 11:10 97 H 128/73 12/07/22 11:08 95 H 97 12/07/22 11:03 101 H 97 12/07/22 10:58 99 H 97 12/07/22 10:53 99 H 98 12/07/22 10:54 98 H 130/75 12/07/22 10:48 88 99 12/07/22 10:43 97 H 98 12/07/22 10:38 98 H 123/64 98 12/07/22 10:36 94 H 123/67 12/07/22 10:34 104 H 116/63 12/07/22 10:33 104 H 97 12/07/22 10:32 108 H 120/63 12/07/22 10:30 36.8 C 109 H 20 122/64 12/07/22 10:28 106 H 97 12/07/22 10:27 105 H 149/83 H 12/07/22 10:25 96 H 136/98 12/07/22 10:23 97 H 98 12/07/22 10:21 111 H 132/97 12/07/22 10:18 114 H 100 12/07/22 10:13 115 H 100
[2022-12-07] MEDS ORDERED: TERBUTALINE SULFATE 1 MG/ML VIAL ONE (21:08)
[2022-12-07] MEDS ORDERED: CITRIC ACID/SODIUM CITRATE 15 ML UDC ONE (21:08)
[2022-12-07] MEDS ORDERED: ceFAZolin 2000MG 2,000 MG/15 ML SYR IV ONE (21:15)
[2022-12-07] MEDS ORDERED: AZITHROMYCIN 500 MG in DEXTROSE 5% 250 ML IV ONE (21:15)
[2022-12-07] MEDS ORDERED: OXYTOCIN 10 UNITS/ML VIAL ONE (21:27)
[2022-12-07] MEDS ORDERED: ONDANSETRON INJ 2 MG/ML 2 ML VIAL ONE (21:36)
[2022-12-07] MEDS ORDERED: MoRPHine SULFATE PF 1 MG/ML 10 ML AMP/VIAL ONE (21:39)
[2022-12-07] MEDS ORDERED: LACTATED RINGER'S 500 ML IV PRN (21:41)
[2022-12-07] MEDS ORDERED: NALOXONE HCL 0.08 MG in SYRINGE 1.8 ML IV PRN (21:41)
[2022-12-07] MEDS ORDERED: MoRPHine SULFATE PF 1 MG/ML 10 ML AMP/VIAL INT SPINAL ONE (21:41)
[2022-12-07] MEDS ORDERED: DC INTRASPINAL MORPHINE SCH (21:45)
[2022-12-07] MEDS ORDERED: SODIUM CHLORIDE 0.9% 1,000 ML IV SCH (21:45)
[2022-12-07] MEDS ORDERED: NO NARCOTICS OR SEDATIVES SCH (21:45)
[2022-12-07 22:05] LABS: Base Excess Cord Venous Blood -7.1 mEq/L (-7.7-1.9); Cord Venous Blood HCO3 21 mmol/L (18.4-26.8); Cord Venous Blood PCO2 51 mmHg (30.4-57.2); Cord Venous Blood PO2 23 mmHg (14.1-43.3); Cord Venous Blood pH 7.22 (7.20-7.44); O2 Saturation Cord Venous Bld < 60.0 % (<68)
[2022-12-07] MEDS ORDERED: HYDROCORTISONE ACETATE 25 MG SUPP PR PRN (22:30)
[2022-12-07] MEDS ORDERED: DIPHTHERIA/TETANUS/PERTUSSIS Vaccine (Tdap, Age 7+yrs) 0.5mL SYR/VL IM ONE (22:30)
[2022-12-07] MEDS ORDERED: SENNA 8.6 MG TAB PO PRN (22:30)
[2022-12-07] MEDS ORDERED: BENZOCAINE 20% SPRY 85 APPLN/85 GM CAN EXT PRN (22:30)
[2022-12-07] MEDS ORDERED: MEASLES, MUMPS & RUBELLA VIRUS VACCINE (MMR) VIAL SQ ONE (22:30)
[2022-12-07] MEDS ORDERED: MAGNESIUM HYDROXIDE SUSP 30 ML UDC PO PRN (22:30)
--- NOTE | 2022-12-07 22:42 | Operative Report ---
Post Operative Report Pre & Post Diagnosis Operation Date: 12/07/22 21:30 Pre-Op Diagnosis: 1. Arrest of descent 2. Category II tracing Post-Op Diagnosis: 1. Arrest of descent 2. Category II tracing 3. Delivery of live female child at 2136 I identified the patient and participated in the time-out.: Yes Procedure Operation Date: 12/07/22 21:30 Actual Procedures p Primary Low transverse Section in - Sandra Bright MD Surgeon Sandra Bright MD Medical Records Custodian Annamarie Chao RN Estimated Blood Loss 500 Findings Consistent with Post-Op Diagnosis Maternal findings normal uterus fallopian tubes and ovaries. Baby was a viable female delivered in cephalic presentation, nuchal cord around neck x1, multiple loops of cord around the body, thick meconium stained fluid 3160 gr, Apgars 2,7,8 at 1, 5 and 10 minites, delivered at 2150 Specimens Placenta Anesthesia Type Labor Epidural Complications none Disposition Accompanied Patient To Recovery: Yes Indications Patient is a 27-year-old G1, P0 at 39 weeks and 1 day gestation with gestational diabetes, requiring insulin, induction of labor since December 06, meconium- stained amniotic fluid, arrest of descent in second stage of labor despite effective pushing over 12 hours, recurrent variable decelerations, category 2 strip Description of Procedure Patient was taken to operating room where a spinal anesthesia was given without difficulty. She was placed in dorsal supine position with a leftward tilt. She was prepared and draped in usual sterile fashion. Vagina was washed with Betadine solution and head was pushed up to hours patient's abdomen. Then the gloves were changed and and draped with sterile surgical attire. The attention was turned to the patient abdomen. A financial skin incision was made and carried through to the underlying layer of fascia with the Bovie. Fascia was incised in the midline and incision was extended laterally with the help of Gutierres scissors. Then the upper aspect of the fascial incision was grasped with 2 Yari clamps elevated the underlying rectus muscles were dissected off sharply with Gutierres scissors. Same thing was done on the lower incision. Then the muscles were in the midline, peritoneum was identified grasped with 2 pickups and entered sharply with Metzenbaum sc issors. Peritoneal incision was extended superior and inferiorly with good visualization of the bladder. The bladder blade was inserted. Vesicouterine peritoneum was identified, grasped with pickups and entered sharply with Metzenbaum scissors, bladder flap was created digitally and bladder blade was reinserted. Uterus was incised in transverse fashion, incision was extended laterally with our appendage scissors, membranes were ruptured and dark meconium stained fluid was obtained. There were cold loops around the baby's shoulders and neck x1. Baby's head was grasped deep in the pelvis brought up to the uterine incision and delivered. The cord was reduced and the shoulders were delivered easily with gentle traction. Mouth and nose were suctioned, The cord was clamped times and cut at 1 minute delay and then the was handed off to the pediatric team. Then the placenta was delivered manually as intact and complete. Uterus was externalized and cleared of all clots and debris's. Uterine incision was checked and found to have vertical tear in the middle extending down into lower uterine segment. The corners of the transverse incision were held with ring forceps and they will seem to be normal without any extension. But the extension was in the middle of the lower segment about 2 to 3 cm below from the original incision. It was also had with Ativan forceps and the quality was sutured with 0 Vicryl while retracting the bladder with bladder blade as well as sponges on a stick. Repaired with 0 Vicryl in a running locked fashion, and it was checked digitally to be intact and completely sutured from inside of the uterus and you make sure that it was elevated from the bladder. . Then the transfer uterine incision was repaired with 0 Vicryl in a running locked fashion and second umbricating layer was placed with the same suture in running locked fashion. Excellent hemostasis achieved. Cul-de-sac and the pelvis was irrigated with warm normal saline and suctioned. Incision was checked of anesthetic again. Kaylie powder was squirted into the vesicouterine pouch to prevent further oozing. It was also covered with Gelfoam sponge. Uterus was returned to the abdomen, parietal peritoneum was reapproximated with 3-0 Vicryl in a running fashion and the muscles were reapproximated in the same suture in a running fashion. All of the fascia and rectus muscles were hemostatic. We placed another piece of Gelfoam under the fascia and rectus muscles to prevent immersing. Rectus fascia was reapproximated with 0 vicryl in a running fashion. Subcuticular fat tissue was brought together with 2-0 Vicryl in a running fashion, skin was closed with 4-0 Monocryl in a subcuticular cuticular fashion. The mom and baby tolerated procedure well. Sponge needle instrument count was correct x3. No complications happened, I was present during whole procedure. My shipping and receiving assistant was needed for retraction, hemostasis and aid during delivery of I attest to the content of the Intraoperative Record and any orders documented therein. Any exceptions are noted below.
[2022-12-07] MEDS ORDERED: GELATIN SPONGE SZ 100 ONE (22:53)
[2022-12-07] MEDS: KETOROLAC 30 MG/ML VIAL IV PRN (23:09)
[2022-12-07] MEDS ORDERED: SODIUM CHLORIDE 0.9% 250 ML IV PRN (23:18)
--- NOTE | 2022-12-07 23:34 | Anesthesiology Progress Note ---
Date of Service December 07, 2022 Anesthesia Post Procedure Vital Signs Vital Signs: Temp Pulse Resp BP Pulse Ox 12/07/22 23:08 16 12/07/22 22:58 18 12/07/22 23:18 18 12/07/22 22:48 18 12/07/22 22:38 98.8 F 18 12/07/22 23:29 113 H 99 12/07/22 23:28 105 H 132/71 12/07/22 23:24 107 H 100 12/07/22 23:19 105 H 100 12/07/22 23:18 103 H 132/71 12/07/22 23:14 106 H 100 12/07/22 23:09 109 H 100 12/07/22 23:08 108 H 111/76 12/07/22 23:04 109 H 100 12/07/22 23:03 108 H 93 12/07/22 22:59 116 H 100 12/07/22 22:58 111 H 108/69 12/07/22 22:54 114 H 100 12/07/22 22:49 116 H 100 12/07/22 22:50 117 H 111/68 12/07/22 22:44 115 H 100 12/07/22 22:39 117 H 98 12/07/22 22:38 115 H 132/65 12/07/22 21:14 143 H 100 12/07/22 21:09 117 H 100 12/07/22 21:08 117 H 136/82 12/07/22 21:04 128 H 100 12/07/22 20:59 130 H 100 12/07/22 20:54 159 H 154/71 H 100 12/07/22 20:49 127 H 100 12/07/22 20:46 98.4 F 12/07/22 20:44 127 H 97 12/07/22 20:39 132 H 90 12/07/22 20:38 123 H 20 139/73 12/07/22 20:34 155 H 94 12/07/22 20:29 133 H 94 12/07/22 20:24 134 H 98 12/07/22 20:23 139 H 131/69 12/07/22 20:19 138 H 98 12/07/22 20:14 133 H 99 12/07/22 20:11 120 H 137/78 12/07/22 20:09 136 H 100 12/07/22 20:04 122 H 98 12/07/22 19:59 121 H 97 12/07/22 19:54 133 H 86 L 12/07/22 19:53 122 H 124/81 12/07/22 19:49 123 H 98 12/07/22 19:44 124 H 99 12/07/22 19:41 139 H 92 12/07/22 19:39 116 H 98 12/07/22 19:38 114 H 130/86 12/07/22 19:34 118 H 100 12/07/22 19:32 121 H 90 12/07/22 19:29 118 H 97 12/07/22 19:25 120 H 89 L 12/07/22 19:24 114 H 100 12/07/22 19:23 107 H 142/90 H 12/07/22 19:19 110 H 100 12/07/22 19:14 103 H 100 12/07/22 19:09 110 H 139/99 100 12/07/22 19:04 107 H 100 12/07/22 19:01 18 12/07/22 19:01 99.0 F 18 12/07/22 18:59 111 H 100 12/07/22 18:54 116 H 148/86 H 100 12/07/22 18:49 116 H 100 12/07/22 18:44 118 H 100 12/07/22 18:39 107 H 99 12/07/22 18:38 105 H 121/70 12/07/22 18:34 103 H 99 12/07/22 18:29 103 H 97 12/07/22 18:24 105 H 98 12/07/22 18:23 107 H 18 122/73 12/07/22 18:19 109 H 98 12/07/22 18:14 126 H 100 12/07/22 18:09 122 H 77 L 12/07/22 18:08 115 H 136/85 12/07/22 18:04 136 H 99 12/07/22 17:59 127 H 99 12/07/22 17:58 146 H 83 L 12/07/22 17:54 123 H 99 12/07/22 17:52 121 H 90 12/07/22 17:49 136 H 99 12/07/22 17:46 128 H 88 L 12/07/22 17:44 118 H 99 12/07/22 17:39 126 H 100 12/07/22 17:38 129 H 128/72 12/07/22 17:35 20 12/07/22 17:35 98.2 F 20 12/07/22 17:34 127 H 99 12/07/22 17:29 147 H 97 12/07/22 17:24 100 12/07/22 17:24 128 H 12/07/22 17:24 121 H 148/84 H 12/07/22 17:19 131 H 100 12/07/22 17:13 123 H 99 12/07/22 17:08 113 H 140/81 99 12/07/22 17:03 112 H 98 12/07/22 16:58 99 H 97 12/07/22 16:53 99 12/07/22 16:53 128 H 12/07/22 16:53 125 H 143/89 H 12/07/22 16:48 130 H 99 12/07/22 16:43 126 H 99 12/07/22 16:38 113 H 143/93 H 100 12/07/22 16:33 115 H 99 12/07/22 16:28 105 H 99 12/07/22 16:23 99 12/07/22 16:23 109 H 12/07/22 16:23 108 H 138/77 12/07/22 16:01 18 12/07/22 16:01 18 12/07/22 16:18 111 H 98 12/07/22 16:13 118 H 98 12/07/22 16:08 94 H 98 12/07/22 16:09 91 H 134/79 12/07/22 16:03 104 H 99 12/07/22 15:58 105 H 96 12/07/22 15:55 105 H 138/73 12/07/22 15:53 107 H 98 12/07/22 15:48 99 H 99 12/07/22 15:43 102 H 96 12/07/22 15:38 100 H 145/90 H 98 12/07/22 15:33 100 H 97 12/07/22 15:30 97 H 140/66 12/07/22 15:28 104 H 100 12/07/22 15:25 98 H 158/100 H 12/07/22 15:23 97 H 100 12/07/22 15:18 96 H 100 12/07/22 15:13 102 H 100 12/07/22 15:10 89 141/88 H 12/07/22 15:08 100 H 100 12/07/22 15:03 99 H 100 12/07/22 14:59 20 12/07/22 14:59 98.6 F 20 12/07/22 14:58 102 H 100 12/07/22 14:53 105 H 100 12/07/22 14:54 108 H 148/65 H 12/07/22 14:48 107 H 100 12/07/22 14:43 103 H 100 12/07/22 14:38 117 H 100 12/07/22 14:39 116 H 156/96 H 12/07/22 14:33 108 H 100 12/07/22 14:28 98 H 98 12/07/22 14:24 93 H 140/78 12/07/22 14:23 102 H 98 12/07/22 14:18 95 H 98 12/07/22 14:13 90 98 12/07/22 14:11 95 H 121/67 12/07/22 14:10 101 H 143/93 H 12/07/22 14:08 98 H 98 12/07/22 14:03 102 H 98 12/07/22 13:58 97 H 97 12/07/22 13:55 106 H 142/77 H 12/07/22 13:53 103 H 98 12/07/22 13:48 101 H 98 12/07/22 13:43 101 H 99 12/07/22 13:38 93 H 98 12/07/22 13:39 91 H 139/85 12/07/22 13:33 107 H 100 12/07/22 13:28 108 H 99 12/07/22 13:23 94 H 123/78 98 12/07/22 13:18 98 H 98 12/07/22 13:13 101 H 98 12/07/22 13:08 97 H 98 12/07/22 13:09 96 H 130/75 12/07/22 13:03 96 H 98 12/07/22 12:58 100 H 98 12/07/22 12:53 95 H 129/73 99 12/07/22 12:48 94 H 98 12/07/22 12:43 96 H 98 12/07/22 12:30 18 12/07/22 12:30 98.4 F 18 12/07/22 12:38 100 H 98 12/07/22 12:39 93 H 126/72 12/07/22 12:33 91 H 97 12/07/22 12:28 95 H 98 12/07/22 12:23 93 H 99 12/07/22 12:24 91 H 132/90 12/07/22 12:18 98 H 99 12/07/22 12:13 98 H 98 12/07/22 12:08 104 H 122/72 98 12/07/22 12:03 98 H 99 12/07/22 11:58 103 H 98 12/07/22 11:54 95 H 124/75 12/07/22 11:53 94 H 98 12/07/22 11:48 101 H 100 12/07/22 11:43 97 H 99 12/07/22 11:38 92 H 116/70 98 12/07/22 11:33 98 H 98 12/07/22 11:28 96 H 98 12/07/22 11:00 16 12/07/22 11:00 16 12/07/22 11:23 99 H 118/72 98 12/07/22 11:18 103 H 97 12/07/22 11:13 98 H 98 12/07/22 11:10 97 H 128/73 12/07/22 11:08 95 H 97 12/07/22 11:03 101 H 97 12/07/22 10:58 99 H 97 12/07/22 10:53 99 H 98 12/07/22 10:54 98 H 130/75 12/07/22 10:48 88 99 12/07/22 10:43 97 H 98 12/07/22 10:38 98 H 123/64 98 12/07/22 10:36 94 H 123/67 12/07/22 10:34 104 H 116/63 12/07/22 10:33 104 H 97 12/07/22 10:32 108 H 120/63 12/07/22 10:30 98.2 F 109 H 20 122/64 12/07/22 10:28 106 H 97 12/07/22 10:27 105 H 149/83 H 12/07/22 10:25 96 H 136/98 12/07/22 10:23 97 H 98 12/07/22 10:21 111 H 132/97 12/07/22 10:18 114 H 100 12/07/22 10:13 115 H 100 12/07/22 07:09 98.2 F 100 H 18 144/86 H 12/07/22 05:22 18 12/07/22 05:22 98.8 F 18 12/07/22 05:21 100 H 121/82 12/07/22 01:00 98.4 F 100 H 18 132/86 Pain Intensity Lower Abdomen: Pain Intensity: 7 Transfer of Care Handoff Completed per policy Notes Mental Status: alert / awake / arousable and participated in evaluation Nausea / Vomiting: adequately controlled Pain: adequately controlled Airway Patency, RR, SpO2: stable & adequate BP & HR: stable & adequate Hydration State: stable & adequate Neuraxial Anesthesia: was administered and sensory block is resolving Anesthetic Complications: no major complications apparent and Pt Satisfied with anesthetic care
--- NOTE | 2022-12-07 23:35 | Anesthesia Procedure Note ---
Date of Service December 07, 2022 Anesthesia Post Epidural Note Vital Signs Vital Signs: Temp Pulse Resp BP Pulse Ox 98.8 F 113 H 18 132/71 99 12/07/22 22:38 12/07/22 23:29 12/07/22 23:18 12/07/22 23:28 12/07/22 23:29 Pain Intensity Lower Abdomen: Pain Intensity: 7 Notes Mental Status: alert / awake / arousable and participated in evaluation Nausea / Vomiting: adequately controlled Pain: adequately controlled Airway Patency, RR, SpO2: stable & adequate BP & HR: stable & adequate Hydration State: stable & adequate Neuraxial Anesthesia: was administered and sensory block is resolving Anesthetic Complications: no major complications apparent and Pt Satisfied with anesthetic care Epidural: Removed without complications and With tip intact
[2022-12-07] MEDS: MEPERIDINE HCL 25 MG/ML CARP/VIAL IV PRN (23:44)
[2022-12-08] MEDS: OXYTOCIN 20 UNITS in LACTATED RINGER'S 1,000 ML IV SCH ×2 (00:47→08:34)
[2022-12-08] MEDS ORDERED: TERBUTALINE SULFATE 1 MG/ML VIAL SQ ONE (02:13)
[2022-12-08] MEDS ORDERED: CITRIC ACID/SODIUM CITRATE 15 ML UDC PO ONE (02:15)
[2022-12-08] MEDS: KETOROLAC 30 MG/ML VIAL IV PRN ×2 (04:47→12:38)
[2022-12-08] MEDS: ceFAZolin 2000MG 2,000 MG/15 ML SYR IV SCH ×2 (05:39→14:13)
[2022-12-08 07:09] LABS: Basophils # (auto) 0.02 K/uL (0.00-0.20); Basophils % (auto) 0.1 %; Eosinophils # (auto) 0.03 K/uL (0.00-0.50); Eosinophils % (auto) 0.2 %; Hematocrit (blood only) 36.2 % (37.0-47.0); Hemoglobin 12.5 g/dl (12.0-16.0); Immature Granulocytes # (auto) 0.26 K/uL (0.01-0.20); Immature Granulocytes % (auto) 1.8 %; Lymphocytes # (auto) 1.65 K/uL (1.20-3.40); Lymphocytes % (auto) 11.5 %; Mean Corpuscular Hemoglobin 31.6 pg (25.0-34.0); Mean Corpuscular Hgb Conc 34.5 g/dL (32.0-36.0); Mean Corpuscular Volume 91.6 fL (80.0-100.0); Mean Platelet Volume 10.2 fL (9.4-12.4); Monocytes # (auto) 0.68 K/uL (0.11-0.59); Monocytes % (auto) 4.8 %; Neutrophils # (auto) 11.67 K/uL (1.40-6.50); Neutrophils % (auto) 81.6 %; Platelet Count 225 K/uL (130-400); RDW Coefficient of Variation 14.2 % (11.5-14.5); RDW Standard Deviation 47.7 fL (36.4-46.3); Red Blood Count 3.95 M/uL (4.20-5.40); White Blood Count 14.31 K/ul (4.8-10.8)
[2022-12-08] MEDS: SIMETHICONE 80 MG CHEW PO SCH ×4 (08:28→20:39)
[2022-12-08] MEDS: PRENATAL VITAMIN 1 TAB PO SCH (08:28)
[2022-12-08] MEDS: FERROUS SULFATE 325 MG TAB PO SCH (08:28)
[2022-12-08] MEDS: DOCUSATE SODIUM 100 MG CAP PO SCH ×2 (08:29→20:40)
[2022-12-08] MEDS: MEPERIDINE HCL 25 MG/ML CARP/VIAL IV PRN (08:48)
--- NOTE | 2022-12-08 10:56 | Obstetrical Progress Note ---
Date of Service December 08, 2022 Subjective Ambulation: ambulating normally Voiding: no voiding problems Passing Gas:: Yes Diet Tolerance:: regular diet Lochia:: Small Feeding Type:: breast feeding Current Pain Level(1-10): 0 doing well Physical Exam Gastrointestinal (Abdomen) Inspection/Auscultation: abdomen normal to inspection and + abdominal surgical incision Musculoskeletal Extremities: extremities normal to inspection Skin no rashes, warm and dry Neurologic patellar DTR's 2+ bilat, sensation intact Psychiatric A+Ox3, euthymic affect Results & Data Vital Signs (Past 12 Hours) Vital Signs Temp Pulse Pulse Resp BP BP Pulse Ox 12/08/22 10:40 18 98 12/08/22 09:40 18 99 12/08/22 08:40 18 97 12/08/22 07:40 18 99 12/08/22 06:29 18 95 12/08/22 05:45 18 96 12/08/22 04:45 18 97 12/08/22 04:53 36.8 C 100 H 18 130/85 98 12/08/22 01:00 12/08/22 01:00 37 C 101 H 18 125/83 96 12/08/22 03:28 18 95 12/08/22 02:30 16 94 12/08/22 01:45 16 95 12/08/22 00:50 18 96 12/08/22 00:38 18 12/08/22 00:19 18 12/07/22 23:38 18 12/07/22 23:28 16 12/07/22 23:38 16 12/07/22 23:08 16 12/07/22 22:58 18 12/07/22 23:18 18 12/08/22 00:39 108 H 97 12/08/22 00:38 106 H 137/79 12/08/22 00:34 107 H 97 12/08/22 00:29 105 H 96 12/08/22 00:28 102 H 133/68 12/08/22 00:24 111 H 97 12/08/22 00:19 109 H 97 12/08/22 00:18 108 H 131/74 12/08/22 00:14 108 H 97 12/08/22 00:09 91 H 98 12/08/22 00:08 106 H 138/78 12/08/22 00:05 106 H 90 12/08/22 00:04 110 H 96 12/07/22 23:59 103 H 96 12/07/22 23:58 107 H 136/70 12/07/22 23:54 104 H 96 12/07/22 23:49 111 H 98 12/07/22 23:48 112 H 133/83 12/07/22 23:44 108 H 98 12/07/22 23:39 105 H 100 12/07/22 23:38 104 H 133/77 12/07/22 23:34 103 H 99 12/07/22 23:29 113 H 99 12/07/22 23:28 105 H 132/71 12/07/22 23:24 107 H 100 12/07/22 23:19 105 H 100 12/07/22 23:18 103 H 132/71 12/07/22 23:14 106 H 100 12/07/22 23:09 109 H 100 12/07/22 23:08 108 H 111/76 12/07/22 23:04 109 H 100 12/07/22 23:03 108 H 93 12/07/22 22:59 116 H 100 12/07/22 22:58 111 H 108/69 O2 Del Method 12/08/22 10:40 12/08/22 09:40 12/08/22 08:40 12/08/22 07:40 12/08/22 06:29 12/08/22 05:45 12/08/22 04:45 12/08/22 04:53 Room Air 12/08/22 01:00 Room Air 12/08/22 01:00 Room Air 12/08/22 03:28 12/08/22 02:30 12/08/22 01:45 12/08/22 00:50 12/08/22 00:38 12/08/22 00:19 12/07/22 23:38 12/07/22 23:28 12/07/22 23:38 12/07/22 23:08 12/07/22 22:58 12/07/22 23:18 12/08/22 00:39 12/08/22 00:38 12/08/22 00:34 12/08/22 00:29 12/08/22 00:28 12/08/22 00:24 12/08/22 00:19 12/08/22 00:18 12/08/22 00:14 12/08/22 00:09 12/08/22 00:08 12/08/22 00:05 12/08/22 00:04 12/07/22 23:59 12/07/22 23:58 12/07/22 23:54 12/07/22 23:49 12/07/22 23:48 12/07/22 23:44 12/07/22 23:39 12/07/22 23:38 12/07/22 23:34 12/07/22 23:29 12/07/22 23:28 12/07/22 23:24 12/07/22 23:19 12/07/22 23:18 12/07/22 23:14 12/07/22 23:09 12/07/22 23:08 12/07/22 23:04 12/07/22 23:03 12/07/22 22:59 12/07/22 22:58 Laboratory Results Laboratory Results - last 48 hr 12/06/22 12/06/22 12/06/22 12:48 17:07 20:57 WBC RBC Hgb Hct MCV MCH MCHC RDW Std Deviation RDW Coeff of Josey Plt Count MPV Immature Gran % (Auto) Neut % (Auto) Lymph % (Auto) [place] % (Auto) Eos % (Auto) Baso % (Auto) Neut # (Auto) Lymph # (Auto) [place] # (Auto) Eos # (Auto) Baso # (Auto) Immature Gran # (Auto) Cord ABG pH Cord ABG pCO2 Cord ABG pO2 Cord ABG HCO3 Cord ABG Base Excess Cord ABG O2 Sat Cord VBG pH Cord VBG pCO2 Cord VBG pO2 Cord VBG HCO3 Cord VBG Base Excess Cord VBG O2 Sat Barometric Pressure Blood Gas Comments POC Glucose 88 112 H 99 12/07/22 12/07/22 12/07/22 01:04 05:24 08:48 WBC RBC Hgb Hct MCV MCH MCHC RDW Std Deviation RDW Coeff of Josey Plt Count MPV Immature Gran % (Auto) Neut % (Auto) Lymph % (Auto) [place] % (Auto) Eos % (Auto) Baso % (Auto) Neut # (Auto) Lymph # (Auto) [place] # (Auto) Eos # (Auto) Baso # (Auto) Immature Gran # (Auto) Cord ABG pH Cord ABG pCO2 Cord ABG pO2 Cord ABG HCO3 Cord ABG Base Excess Cord ABG O2 Sat Cord VBG pH Cord VBG pCO2 Cord VBG pO2 Cord VBG HCO3 Cord VBG Base Excess Cord VBG O2 Sat Barometric Pressure Blood Gas Comments POC Glucose 142 H 87 136 H 12/07/22 12/07/22 12/07/22 13:31 14:44 15:45 WBC RBC Hgb Hct MCV MCH MCHC RDW Std Deviation RDW Coeff of Josey Plt Count MPV Immature Gran % (Auto) Neut % (Auto) Lymph % (Auto) [place] % (Auto) Eos % (Auto) Baso % (Auto) Neut # (Auto) Lymph # (Auto) [place] # (Auto) Eos # (Auto) Baso # (Auto) Immature Gran # (Auto) Cord ABG pH Cord ABG pCO2 Cord ABG pO2 Cord ABG HCO3 Cord ABG Base Excess Cord ABG O2 Sat Cord VBG pH Cord VBG pCO2 Cord VBG pO2 Cord VBG HCO3 Cord VBG Base Excess Cord VBG O2 Sat Barometric Pressure Blood Gas Comments POC Glucose 83 82 79 12/07/22 12/07/22 12/07/22 16:44 19:06 20:27 WBC RBC Hgb Hct MCV MCH MCHC RDW Std Deviation RDW Coeff of Josey Plt Count MPV Immature Gran % (Auto) Neut % (Auto) Lymph % (Auto) [place] % (Auto) Eos % (Auto) Baso % (Auto) Neut # (Auto) Lymph # (Auto) [place] # (Auto) Eos # (Auto) Baso # (Auto) Immature Gran # (Auto) Cord ABG pH Cord ABG pCO2 Cord ABG pO2 Cord ABG HCO3 Cord ABG Base Excess Cord ABG O2 Sat Cord VBG pH Cord VBG pCO2 Cord VBG pO2 Cord VBG HCO3 Cord VBG Base Excess Cord VBG O2 Sat Barometric Pressure Blood Gas Comments POC Glucose 74 92 94 12/07/22 12/07/22 12/08/22 22:01 22:01 06:27 WBC 14.31 H RBC 3.95 L Hgb 12.5 Hct 36.2 L MCV 91.6 MCH 31.6 MCHC 34.5 RDW Std Deviation 47.7 H RDW Coeff of Josey 14.2 Plt Count 225 MPV 10.2 Immature Gran % (Auto) 1.8 Neut % (Auto) 81.6 Lymph % (Auto) 11.5 [place] % (Auto) 4.8 Eos % (Auto) 0.2 Baso % (Auto) 0.1 Neut # (Auto) 11.67 H Lymph # (Auto) 1.65 [place] # (Auto) 0.68 H Eos # (Auto) 0.03 Baso # (Auto) 0.02 Immature Gran # (Auto) 0.26 H Cord ABG pH Cancelled Cord ABG pCO2 Cancelled Cord ABG pO2 Cancelled Cord ABG HCO3 Cancelled Cord ABG Base Excess Cancelled Cord ABG O2 Sat Cancelled Cord VBG pH 7.22 Cord VBG pCO2 51 Cord VBG pO2 23 Cord VBG HCO3 21 Cord VBG Base Excess -7.1 Cord VBG O2 Sat < 60.0 Barometric Pressure Cancelled Blood Gas Comments Cancelled MARTINEZ POC Glucose
[2022-12-08] MEDS ORDERED: ONDANSETRON INJ 2 MG/ML 2 ML VIAL IV PRN (15:41)
[2022-12-08] MEDS ORDERED: diphenhydrAMINE Capsule 25 MG CAP PO PRN (15:41)
[2022-12-08] MEDS ORDERED: diphenhydrAMINE 50 MG/ML VIAL IV PRN (15:41)
[2022-12-08] MEDS ORDERED: MEPERIDINE HCL 50 MG/ML CARP IV PRN (15:41)
[2022-12-08] MEDS ORDERED: PROMETHAZINE HCL 25 MG in SODIUM CHLORIDE 0.9% 50 ML IV PRN (15:41)
[2022-12-08] MEDS: oxyCODONE/ACETAMINOPHEN 5mg/325mg TAB PO PRN ×2 (15:52→20:39)
[2022-12-08] MEDS: IBUPROFEN 600 MG TAB PO PRN ×2 (15:53→20:39)
[2022-12-08] MEDS ORDERED: bisacodyL 5 MG TABEC PO SCH (20:00)
[2022-12-09] MEDS: oxyCODONE/ACETAMINOPHEN 5mg/325mg TAB PO PRN ×3 (00:23→08:58)
[2022-12-09] MEDS: IBUPROFEN 600 MG TAB PO PRN ×5 (00:23→19:38)
[2022-12-09 06:47] LABS: Hematocrit (blood only) 33.1 % (37.0-47.0); Hemoglobin 11.2 g/dl (12.0-16.0)
[2022-12-09] MEDS: DOCUSATE SODIUM 100 MG CAP PO SCH ×2 (08:57→20:54)
[2022-12-09] MEDS: PRENATAL VITAMIN 1 TAB PO SCH (08:57)
[2022-12-09] MEDS: FERROUS SULFATE 325 MG TAB PO SCH (08:57)
[2022-12-09] MEDS: SIMETHICONE 80 MG CHEW PO SCH ×4 (08:57→20:54)
--- NOTE | 2022-12-09 09:46 | Obstetrical Progress Note ---
Date of Service December 09, 2022 Assessment & Plan (1) Normal course: PPD #2 pt doing well hx of lower abdominal pain- neg clx pain is probably musculoskeletal pt of percocet PRN for pain Subjective Ambulation: ambulating normally Voiding: no voiding problems Passing Gas:: Yes Diet Tolerance:: regular diet Lochia:: Small Feeding Type:: breast feeding Review of Systems All systems reviewed & are unremarkable except as noted in HPI & below Physical Exam Constitutional WD/WN, vitals as above well developed and well nourished Eyes PERRL, conjunctivae normal, anicteric sclerae Neck trachea midline, no thyromegaly Respiratory normal respiratory effort, lungs clear to auscultation Auscultation: no crackles, no rales and no wheezes Cardiovascular RRR, no murmur, no edema Gastrointestinal (Abdomen) normal bowel sounds, soft, nontender, no hepatosplenomegaly Uterus is below umbilicus Musculoskeletal no cyanosis or clubbing, extremities motor strength 5/5 Skin no rashes, warm and dry Neurologic patellar DTR's 2+ bilat, sensation intact Psychiatric A+Ox3, euthymic affect Genitourinary normal external appearance Results & Data Vital Signs (Past 12 Hours) Vital Signs Temp Pulse Pulse Resp BP Pulse Ox O2 Del Method 12/09/22 07:40 36.6 C 115 H 18 134/85 98 Room Air 12/08/22 23:06 36.6 C 98 H 20 117/82 96 Room Air
[2022-12-09] MEDS: ACETAMINOPHEN 325 MG TAB PO PRN ×2 (16:59→23:25)
[2022-12-09] MEDS: LACTATED RINGER'S 1,000 ML IV SCH (21:15)
[2022-12-09] MEDS ORDERED: bisacodyL 10 MG SUPP PR PRN (22:30)
[2022-12-10] MEDS: IBUPROFEN 600 MG TAB PO PRN (04:45)
[2022-12-10] MEDS: SIMETHICONE 80 MG CHEW PO SCH (07:26)
[2022-12-10] MEDS: FERROUS SULFATE 325 MG TAB PO SCH (07:26)
[2022-12-10] MEDS: PRENATAL VITAMIN 1 TAB PO SCH (07:26)
[2022-12-10] MEDS: ACETAMINOPHEN 325 MG TAB PO PRN (07:26)
[2022-12-10] MEDS: DOCUSATE SODIUM 100 MG CAP PO SCH (07:26)
--- NOTE | 2022-12-10 08:06 | Obstetrical Progress Note ---
Date of Service December 10, 2022 Assessment & Plan (1) Normal course: Admission and Anticipated Discharge Date Admission Date: December 06, 2022 Results & Data Vital Signs (Past 12 Hours) Vital Signs Temp Pulse Resp BP Pulse Ox O2 Del Method 12/10/22 07:15 36.3 C L 82 18 130/94 94 Room Air 12/09/22 23:25 36.6 C 109 H 16 128/88
--- NOTE | 2022-12-10 08:07 | Obstetrical Progress Note ---
Date of Service December 10, 2022 Assessment & Plan (1) Normal course: PPD #2 pt ding well d/c home with instructions Subjective Ambulation: ambulating normally Voiding: no voiding problems Passing Gas:: Yes Diet Tolerance:: clear liquids Lochia:: Small Feeding Type:: breast feeding Review of Systems All systems reviewed & are unremarkable except as noted in HPI & below Physical Exam Constitutional WD/WN, vitals as above well developed and well nourished Eyes PERRL, conjunctivae normal, anicteric sclerae ENMT external ear and nose normal, oropharynx normal Neck trachea midline, no thyromegaly Respiratory normal respiratory effort, lungs clear to auscultation Cardiovascular RRR, no murmur, no edema Chest (Breasts) normal inspection/palpation of breasts Gastrointestinal (Abdomen) normal bowel sounds, soft, nontender, no hepatosplenomegaly Musculoskeletal no cyanosis or clubbing, extremities motor strength 5/5 Skin no rashes, warm and dry + incision (Clean,dry and intact) Neurologic patellar DTR's 2+ bilat, sensation intact Psychiatric A+Ox3, euthymic affect Genitourinary normal external appearance Lymphatic no cervical or axillary lymphadenopathy Results & Data Vital Signs (Past 12 Hours) Vital Signs Temp Pulse Resp BP Pulse Ox O2 Del Method 12/10/22 07:15 36.3 C L 82 18 130/94 94 Room Air 12/09/22 23:25 36.6 C 109 H 16 128/88
== END 2022-12-10 10:00 | disposition home or self-care (01) | DRG 788 ==
LOC: 4S1 07:07 → 4E2 12-08 01:22